=== PATIENT | male | born 1970 | race Caucasian/White ===

== ENCOUNTER 2017-01-21 17:16 | Inpatient (IN) | payer SELFPAY ==
[~2017-01-21] VITALS: Ht 167.6 cm; Wt 90.4 kg
[2017-01-21 18:06] VITALS: BP 127/82
== END 2017-01-21 18:00 | disposition left against medical advice (07) | DRG 392 ==
LOC: EME 17:16 → EDOF 17:30
DX: K57.92 Diverticulitis of intestine, part unspecified, without perforation or abscess without bleeding (principal); Z91.19 Patient's noncompliance with other medical treatment and regimen
CPT/HCPCS: 36415; 80053; 85007; 85025; 99281; 99284

== ENCOUNTER → 2017-01-21 | Outpatient (CLI) | payer SELFPAY ==
[~2017-01-21] MED LIST: AUGMENTIN875 MG PO; NO DOZ200 MG PO; PROAIR HFA8.5 GM IH; TYLENOL EXTRA500 MG PO
== END | disposition home or self-care (01) ==
LOC: RAD 13:45
DX: K57.32 Diverticulitis of large intestine without perforation or abscess without bleeding (principal)
CPT/HCPCS: 74177

== ENCOUNTER 2017-03-06 14:50 | Emergency (ER) | payer SELFPAY ==
[~2017-03-06] VITALS: Ht 165.1 cm; Wt 87.4 kg
[2017-03-06 15:33] LABS: HEMATOCRIT 46.1 % (38.0-50.0); MCH 30.8 PG (29.0-34.0); MCHC 34.5 G/DL (30.0-36.0); MCV 89.3 FL (86-99); PLATELET COUNT 263 K/uL (156-360); RBC DIS.WIDTH-CV 13.6 % (11.8-14.6); RBC DIS.WIDTH-SD 44.6 % (39-53); RED BLOOD COUNT 5.16 M/uL (4.00-5.50); WHITE BLOOD COUNT 16.1 K/uL (4.1-10.2)
[2017-03-06 15:43] LABS: CHLORIDE 104 mEq/L (99-109); POTASSIUM 4.1 mEq/L (3.7-5.4); SODIUM 139 mEq/L (136-147)
[2017-03-06 15:45] LABS: GLUCOSE 121 mg/dL (70-99)
[2017-03-06 15:46] LABS: ANION GAP 11 MEQ/L (2-14)
[2017-03-06 15:49] LABS: GFR ESTIMATE (CALCULATED) > 59 mL/min/
[2017-03-06 15:50] LABS: UREA NITROGEN (BUN) 9 mg/dL (9-23)
[2017-03-06 15:56] LABS: TROP-I INTERPRETATION NEGATIVE; TROPONIN-I < 0.01 ng/mL (0.0-0.30)
[2017-03-06 16:56] LABS: TOTAL BILIRUBIN 0.6 mg/dL (0.0-1.0)
[2017-03-06 16:57] LABS: ALKALINE PHOSPHATASE 79 IU/L (3-129)
[2017-03-06 17:00] LABS: DIRECT BILIRUBIN 0.3 mg/dL (0.0-0.3)
[2017-03-06 17:01] LABS: LIPASE 77 U/L (1.0-51.0)
[2017-03-06 17:33] LABS: ADD MIUA? YES; BILIRUBIN NEGATIVE; BLOOD MODERATE; COLOR STRAW ((YELLOW)); GLUCOSE (STRIP) NEGATIVE; KETONES NEGATIVE; LEUKOCYTES NEGATIVE; NITRITE NEGATIVE; PROTEIN (STRIP) NEGATIVE; SPECIFIC GRAVITY 1.004 (1.000-1.030); UROBILINOGEN 0.2 MG/DL (0.2-1.0)
[2017-03-06 17:36] LABS: BACTERIA NONE SEEN /HPF; EPITHELIAL CELLS NONE SEEN /HPF; MUCUS NONE SEEN /LPF; RED BLOOD CELLS 0-5 /HPF (0-5); WHITE BLOOD CELLS 0-5 /HPF (0-5)
[2017-03-06] MEDS ORDERED: BACTRIM,SEPT1 TABLET PO (18:58)
[2017-03-06] MEDS ORDERED: FLAGYL500 MG PO (18:58)
[2017-03-06 19:13] VITALS: BP 130/87
== END 2017-03-06 19:13 | disposition home or self-care (01) ==
LOC: EME 14:50
PROVIDERS: Physician Assistant
DX: K57.92 Diverticulitis of intestine, part unspecified, without perforation or abscess without bleeding (principal); I10 Essential (primary) hypertension; J45.909 Unspecified asthma, uncomplicated; F17.200 Nicotine dependence, unspecified, uncomplicated
CPT/HCPCS: 71020; 74177; 80048; 80076; 81003; 83690; 84484; 85027; 93005; 99281; 99284; J7040